=== PATIENT | female | born 2005 | race Two or more races ===

== ENCOUNTER 2025-04-25 10:28 | Emergency (ER) | payer MEDICAID ==
[~2025-04-25] VITALS: Ht 160 cm; Wt 67.6 kg
[2025-04-25 10:32] VITALS: TEMP 98.2
[2025-04-25] MEDS: ACETAMINOPHEN 500 MG TABLET PO ONE (11:30)
[2025-04-25 11:31] VITALS: BP 111/75; PULSE 82; RESP 18; O2SAT 99
[2025-04-25] MEDS: IBUPROFEN 400 MG TABLET PO ONE (11:31)
== END 2025-04-25 11:58 | disposition home or self-care (01) ==
LOC: EMS 10:28
DX: S80.02XA Contusion of left knee, initial encounter (principal); W52.XXXA Crushed, pushed or stepped on by crowd or human stampede, initial encounter; Y93.89 Activity, other specified; Y92.89 Other specified places as the place of occurrence of the external cause; Y99.8 Other external cause status
CPT/HCPCS: 99283